=== PATIENT | female | born 1970 | race Caucasian/White ===

== ENCOUNTER 2017-04-01 07:35 | Outpatient (CLI) | payer OTHER ==
--- NOTE | 2017-04-01 08:47 | CT ---
EXAM: CT of the abdomen and pelvis with contrast History: Weight loss. Technique: Multiplanar CT images through the abdomen pelvis were obtained following administration of IV contrast Findings: Lung bases are free of consolidation. No acute osseous abnormalities. Long right lobe of the liver. 0.8 cm cyst within the caudate lobe of the liver. Nonspecific heteroge neous appearance of the inferior right hepatic lobe. No discrete gallstones identified by CT. Fluid seen in the stomach and there are prominent gastric folds. No bowel obstruction. Spleen is unremar kable. Kidneys are within normal limits. The appendix is normal. Adrenal glands are unremarkable. Pancreas is unremarkable. No free air. No ascites. Bladder is not well distended. No obvious bl adder wall thickening. No perirectal inflammation. Uterus is not seen. There is compression of the left renal vein as it passes between the superior mesenteric artery and aorta. Linear hypodensity s een within the right hepatic vein. Impression: 1. Prominent gastric folds could be within normal limits but cannot exclude a mild gastritis. 2. Long right lobe of the liver and nonspecific heterogeneous appearance of the inferior right hepa tic lobe. Recommend correlation with ultrasound and/or liver MRI for better characterization. Ther e is also a linear hypodensity seen within the right hepatic vein which may be due to mixing artifac t but developing thrombus is not excluded. This can also be evaluated with ultrasound or MRI. 3. 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
== END 2017-04-01 07:36 | disposition home or self-care (01) ==
LOC: RAD 07:35
PROVIDERS: ATTEND Family Medicine
DX: R63.4 Abnormal weight loss (principal); R10.9 Unspecified abdominal pain; R05 Cough

== ENCOUNTER 2017-04-04 07:53 | Outpatient (CLI) ==
--- NOTE | 2017-04-04 08:51 | CT ---
EXAM: CT of the chest with contrast History: Weight loss and cough. Comparison: CT abdomen pelvis 04/01/2017 Technique: Multiplanar CT images through the thorax were obtained following administration of IV co ntrast Findings: Heart size is normal. No pericardial effusion. Great vessels are unremarkable. Minimal residual thymic tissue. No pathologically enlarged thoracic lymph nodes. There are calcified lymph nodes within the mediastinum. No consolidation. No pleural fluid and no pneumothorax. No suspicious lung masses or lung nodules. Findings in the upper abdomen and is described on recent abdominal CT. No acute osseous abnormalities. Impression: No acute intrathoracic process.
== END 2017-04-04 07:54 | disposition home or self-care (01) ==
LOC: RAD 07:53
PROVIDERS: ATTEND Family Medicine
DX: R63.4 Abnormal weight loss (principal); R05 Cough

== ENCOUNTER 2019-03-28 13:54 | Outpatient (CLI) ==
--- NOTE | 2019-03-28 14:38 | DI ---
EXAM: RIGHT KNEE. HISTORY: Knee pain. FINDINGS: Right knee three-view. There is mild tricompartment osteoarthritis. No osteochondral fra gmentation, fracture or joint effusion. Soft tissues are within normal limits. IMPRESSION: 1. Mild tricompartment osteoarthritis.
--- NOTE | 2019-03-28 14:40 | DI ---
EXAM: RIGHT HIP, 2 VIEWS HISTORY: Hip pain FINDINGS: No fracture or joint dislocation. Articular cartilage width is within normal limits for age. Bone density and soft tissues are within normal limits. IMPRESSION: Within normal limits.
== END 2019-03-28 13:55 | disposition home or self-care (01) ==
LOC: RAD 13:54
PROVIDERS: ATTEND Family Medicine
DX: M25.551 Pain in right hip (principal); M25.561 Pain in right knee

== ENCOUNTER 2019-05-01 10:33 | Outpatient (CLI) ==
--- NOTE | 2019-05-01 12:08 | DI ---
EXAM: Three views of the left knee. History: Left knee trauma. Findings: No acute fracture or dislocation. No abnormal calcifications or radiopaque foreign bodies . Joint spaces are preserved. Impression: No acute osseous abnormality
--- NOTE | 2019-05-01 12:42 | DI ---
EXAM: Three views of the left foot. History: Left foot trauma. Findings: Probable mildly displaced fracture of the proximal phalanx of the fifth digit. No dislocat ion. Joint spaces are preserved. No abnormal calcifications or radiopaque foreign bodies. Impression: Probable mildly displaced fracture of the proximal phalanx of the fifth digit. Correlat e with point tenderness.
== END 2019-05-01 10:34 | disposition home or self-care (01) ==
LOC: RAD 10:33
PROVIDERS: ATTEND Family Medicine
DX: S99.922A Unspecified injury of left foot, initial encounter (principal)